=== PATIENT | female | born 1975 | race Caucasian/White ===

== ENCOUNTER 2019-12-11 22:30 | Emergency (ER) | payer SELFPAY ==
[~2019-12-11] VITALS: Ht 172.7 cm; Wt 82.1 kg
[~2019-12-11 22:30] MED LIST: ATARAX25 MG PO; CIPRO500 MG PO; HYDROCODONE BIT1 T11 PO; KEFLEX500 MG PO; MOTRIN800 MG PO; NAPROSYN500 MG PO; NKHM; PREDNISONE20 MG PO; VICODIN 5/500 505 MG PO; ZOVIRAX 5%2 GM T
[2019-12-11 22:35] VITALS: BP 127/56
[2019-12-12] MEDS ORDERED: Motrin,Rufen800 MG PO (00:06)
== END 2019-12-12 00:14 | disposition home or self-care (01) ==
LOC: ED 22:30
DX: S66.911A Strain of unspecified muscle, fascia and tendon at wrist and hand level, right hand, initial encounter (principal); Z88.5 Allergy status to narcotic agent; Z98.890 Other specified postprocedural states; X50.0XXA Overexertion from strenuous movement or load, initial encounter; Y93.89 Activity, other specified; Y92.89 Other specified places as the place of occurrence of the external cause; Y99.8 Other external cause status

== ENCOUNTER 2020-12-06 16:18 | Observation (INO) | payer OTHER ==
[~2020-12-06] VITALS: Ht 175.3 cm; Wt 85.8 kg
[~2020-12-06 16:18] MED LIST changes: +Motrin,Rufen800 MG PO
[2020-12-06 16:25] VITALS: BP 123/62
[2020-12-06 17:09] LABS: BASO % 0.2 % (0.0-1.0); HEMATOCRIT 42.2 % (37.0-47.0); LYMPH # 0.6 10*3/uL (1.3-4.4); LYMPH % 14.5 % (27.0-41.0); MEAN CELL VOLUME 85.6 fl (81.0-99.0); MEAN CORPUSCULAR HGB 27.2 pg (27.0-31.0); MEAN CORPUSCULAR HGB CONC 31.8 g/dl (33.0-37.0); MEAN PLATELET VOLUME 10.8 fl (9.6-12.3); MONO # 0.2 10*3/uL (0.1-1.0); MONO % 3.7 % (3.0-9.0); NEUT # 3.3 10*3/uL (2.3-7.9); NEUT % 81.1 % (47.0-73.0); PLATELET COUNT AUTOMATED 173 10*3/uL (130-400); RED BLOOD COUNT 4.93 10*6/uL (4.10-5.10); RED CELL DISTRI WIDTH 12.6 % (0-14.5); WHITE BLOOD COUNT 4.1 10*3/uL (4.8-10.8)
[2020-12-06 17:31] LABS: ALBUMIN 3.4 gm/dl (3.1-4.5); ALKALINE PHOSPHATASE 67 U/L (45-117); BUN 11 mg/dl (7-24); CHLORIDE 104 mmol/L (98-107); CREATININE 0.82 mg/dL (0.55-1.02); LIPASE 111 U/L (73-393); POTASSIUM 2.9 mmol/L (3.5-5.1); SGOT/AST 29 IU/L (3-35); SGPT/ALT 41 U/L (12-78); SODIUM 135 mmol/L (136-145); TOTAL PROTEIN 7.5 gm/dL (6.4-8.2)
[2020-12-06 17:36] LABS: TROPONIN I < 0.015 ng/ml (<0.045)
[2020-12-06 20:13] VITALS: BP 110/48
[2020-12-07 00:30] VITALS: BP 110/67
[2020-12-07 07:28] LABS: HEMATOCRIT 41.5 % (37.0-47.0); LYMPH # 0.5 10*3/uL (1.3-4.4); LYMPH % 24.8 % (27.0-41.0); MEAN CELL VOLUME 87.4 fl (81.0-99.0); MEAN CORPUSCULAR HGB 27.4 pg (27.0-31.0); MEAN CORPUSCULAR HGB CONC 31.3 g/dl (33.0-37.0); MEAN PLATELET VOLUME 10.9 fl (9.6-12.3); MONO # 0.1 10*3/uL (0.1-1.0); MONO % 6.3 % (3.0-9.0); NEUT # 1.4 10*3/uL (2.3-7.9); NEUT % 68.4 % (47.0-73.0); PLATELET COUNT AUTOMATED 176 10*3/uL (130-400); RED BLOOD COUNT 4.75 10*6/uL (4.10-5.10); RED CELL DISTRI WIDTH 12.6 % (0-14.5); WHITE BLOOD COUNT 2.1 10*3/uL (4.8-10.8)
[2020-12-07 07:44] LABS: ACT PARTIAL THROMBO TIME 27.6 SECONDS (20.0-32.1)
[2020-12-07 08:00] VITALS: BP 112/66
[2020-12-07 08:04] LABS: ALBUMIN 3.4 gm/dl (3.1-4.5); ALKALINE PHOSPHATASE 66 U/L (45-117); BUN 12 mg/dl (7-24); CHLORIDE 107 mmol/L (98-107); CHOLESTEROL 119 mg/dL (<200); CREATININE 0.63 mg/dL (0.55-1.02); FREE T4 1.07 ng/dl (0.76-1.46); HDL CHOLESTEROL 32 mg/dl (40-60); LDH 198 U/L (84-246); LDL CHOLESTEROL 75 mg/dL (9-159); SGOT/AST 26 IU/L (3-35); SGPT/ALT 42 U/L (12-78); SODIUM 136 mmol/L (136-145); TOTAL PROTEIN 7.7 gm/dL (6.4-8.2); TRIGLYCERIDES 60 mg/dl (<150); VLDL CHOLESTEROL 12 mg/dL (6-40)
[2020-12-07 08:07] LABS: POTASSIUM 4.2 mmol/L (3.5-5.1)
[2020-12-07 08:09] LABS: THYROID STIM HORMONE (HS) 0.548 uIU/ml (0.358-4.75)
[2020-12-07 11:03] LABS: VITAMIN D, 25-HYDROXY 23.8 ng/mL (30-100)
[2020-12-07 12:00] VITALS: BP 108/62
[2020-12-07] MEDS ORDERED: DECADRON6 M1 PO (12:54)
[2020-12-07] MEDS ORDERED: IMODIUM A-D2 M2 PO (12:54)
== END 2020-12-07 15:08 | disposition home or self-care (01) ==
LOC: ED 16:18 → 4E 18:48 → EDHOLD 18:48 → 4E 18:48
PROVIDERS: Emergency Medicine; Social Worker Clinical; ADMIT Family Medicine; ATTEND Family Medicine
DX: U07.1 COVID-19 (principal); J12.82 Pneumonia due to coronavirus disease 2019; J96.01 Acute respiratory failure with hypoxia; E87.6 Hypokalemia; E87.1 Hypo-osmolality and hyponatremia; R73.9 Hyperglycemia, unspecified; D72.810 Lymphocytopenia; R00.0 Tachycardia, unspecified; R11.0 Nausea; R42 Dizziness and giddiness; R43.0 Anosmia; R43.2 Parageusia; D72.819 Decreased white blood cell count, unspecified; A41.9 Sepsis, unspecified organism; E83.41 Hypermagnesemia; Z98.890 Other specified postprocedural states

== ENCOUNTER → 2021-01-30 | Outpatient (CLI) | payer OTHER ==
[~2021-01-30] MED LIST changes: +DECADRON6 M1 PO; +IMODIUM A-D2 M2 PO
== END | disposition home or self-care (01) ==
LOC: RAD 18:09
PROVIDERS: ATTEND Internal Medicine
DX: M43.8X6 Other specified deforming dorsopathies, lumbar region (principal)

== ENCOUNTER 2021-04-24 12:45 | Emergency (ER) | payer OTHER ==
[~2021-04-24] VITALS: Ht 175.2 cm; Wt 90.7 kg
[2021-04-24 13:50] LABS: BASO % 0.6 % (0.0-1.0); EOS # 0.1 10*3/uL (0.0-0.4); EOS % 0.8 % (1.0-4.0); HEMATOCRIT 41.9 % (37.0-47.0); LYMPH # 1.7 10*3/uL (1.3-4.4); LYMPH % 24.2 % (27.0-41.0); MEAN CELL VOLUME 86.6 fl (81.0-99.0); MEAN CORPUSCULAR HGB 27.3 pg (27.0-31.0); MEAN CORPUSCULAR HGB CONC 31.5 g/dl (33.0-37.0); MEAN PLATELET VOLUME 10.6 fl (9.6-12.3); MONO # 0.5 10*3/uL (0.1-1.0); MONO % 6.6 % (3.0-9.0); NEUT # 4.8 10*3/uL (2.3-7.9); NEUT % 67.4 % (47.0-73.0); PLATELET COUNT AUTOMATED 310 10*3/uL (130-400); RED BLOOD COUNT 4.84 10*6/uL (4.10-5.10); WHITE BLOOD COUNT 7.2 10*3/uL (4.8-10.8)
[2021-04-24 14:16] LABS: ALBUMIN 3.8 gm/dl (3.1-4.5); ALKALINE PHOSPHATASE 78 U/L (45-117); BUN 11 mg/dl (7-24); CHLORIDE 111 mmol/L (98-107); CREATININE 0.76 mg/dL (0.55-1.02); POTASSIUM 4.1 mmol/L (3.5-5.1); SGOT/AST 12 IU/L (3-35); SGPT/ALT 23 U/L (12-78); SODIUM 140 mmol/L (136-145); TOTAL PROTEIN 7.6 gm/dL (6.4-8.2)
[2021-04-24 14:22] LABS: TROPONIN I < 0.015 ng/ml (<0.045)
[2021-04-24 15:05] VITALS: BP 106/55
== END 2021-04-24 16:25 | disposition home or self-care (01) ==
LOC: ED 12:45
PROVIDERS: Physician Assistant
DX: R55 Syncope and collapse (principal); R42 Dizziness and giddiness; Z88.6 Allergy status to analgesic agent

== ENCOUNTER 2023-06-18 10:22 | Emergency (ER) | payer SELFPAY ==
[~2023-06-18] VITALS: Ht 175.2 cm; Wt 90.7 kg
[2023-06-18 10:48] VITALS: BP 135/66
== END 2023-06-18 14:16 | disposition home or self-care (01) ==
LOC: ED 10:22
DX: S63.502A Unspecified sprain of left wrist, initial encounter (principal); M25.522 Pain in left elbow; Z88.5 Allergy status to narcotic agent; Z98.890 Other specified postprocedural states; W11.XXXA Fall on and from ladder, initial encounter; Y93.89 Activity, other specified; Y92.89 Other specified places as the place of occurrence of the external cause; Y99.8 Other external cause status

== ENCOUNTER 2025-04-17 23:26 | Emergency (ER) | payer OTHER ==
[~2025-04-17] VITALS: Ht 175.2 cm; Wt 95.3 kg
[2025-04-17 23:53] VITALS: BP 146/78
[2025-04-18] MEDS ORDERED: NAPROXEN 250 MG TAB PO ONE (00:05)
== END 2025-04-18 01:39 | disposition home or self-care (01) ==
LOC: ED 23:26
DX: S93.601A Unspecified sprain of right foot, initial encounter (principal); Z88.5 Allergy status to narcotic agent; Z98.890 Other specified postprocedural states; X50.1XXA Overexertion from prolonged static or awkward postures, initial encounter; Y93.89 Activity, other specified; Y92.89 Other specified places as the place of occurrence of the external cause; Y99.8 Other external cause status